=== PATIENT | female | born 1975 | race Caucasian/White ===

== ENCOUNTER → 2020-08-29 | Outpatient (CLI) | payer BC | LOC: COL.RAD 14:00 | DX: M19.072 Primary osteoarthritis, left ankle and foot (principal) | CPT/HCPCS: J3301; Q9967 ==

== ENCOUNTER → 2020-10-21 | Outpatient (CLI) | payer BC | LOC: ZCOL.LAB 11:47 | DX: M79.662 Pain in left lower leg (principal) ==